=== PATIENT | female | born 1990 | race Caucasian/White ===

== ENCOUNTER 2016-10-26 12:59 | Emergency (ER) | payer OTHER ==
[2016-10-26 13:07] VITALS: O2SAT 96
--- NOTE | 2016-10-26 13:28 | UCPHY ---
H & P Time Seen by Provider: 10/26/16 13:09 Patient Type: Established HPI/ROS: CHIEF COMPLAINT: cough, right-sided chest pain HISTORY OF PRESENT ILLNESS: 25-year-old female presents to Urgent Care with concerns about possible the pulled muscle on the right side of her chest. The patient states that she has a history of chronic cough since March 2016. 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 She has been using saline nasal washes which has helped with the cough a bit. She developed cold symptoms over the last few weeks and her cough became worse. She states that she remembers a specific instance where she was coughing and then developed the this same right-sided chest pain just underneath her right breast. The pain is worse when she takes a big deep breath. She is also able to push on this area which causes pain. She also states with certain movements causes pain. She feels that the pain became acutely worse last evening. She feels that it has become more painful degrees. She does not necessarily feel short of breath however. No other reported injuries. She has had this problem in the past due to her chronic cough and did try taking her muscle relaxer, however this was not helpful. REVIEW OF SYSTEMS: Constitutional: No fever, no chills. Eyes: No double or blurry vision. ENT: No sore throat. Respiratory: Cough as above. Right-sided chest pain as above. No shortness of breath. Cardiac: No chest pain. Gastrointestinal: No abdominal pain, vomiting or diarrhea. Genitourinary: No dysuria. Musculoskeletal: No neck or back pain. Skin: No rashes. Neurological: No headache. Past Medical/Surgical History: History of chronic cough since March 2016 Social History: Single Smoking Status: Never smoked Physical Exam: General Appearance: Alert, no distress. Respirations 16, 96% on room air. Afebrile and nontoxic appearing. Eyes: Pupils equal and round. Extraocular motions are all intact. ENT: Mouth: Mucous membranes moist. Respiratory: No wheezing, rhonchi, or rales, lungs are clear to auscultation. The patient has reproducible pain with palpation to the right anterior chest wall just below the right breast in the mid clavicular line. No palpable crepitus or other bony abnormalities. The pain is also worse with movement of her right shoulder specially when she abducts her right arm. Cardiovascular: Regular rate and rhythm. Gastrointestinal: Abdomen is soft and nontender, no masses, no rebound or guarding, bowel sounds normal. Specifically no tenderness with palpation in the right upper quadrant. No CVA tenderness bilaterally. Neurological: Alert and oriented x 3, cranial nerves II through XII grossly intact Skin: Warm and dry, no rashes. Musculoskeletal: Nontender to palpate along the cervical, thoracic or lumbar spine. Neck is supple. Extremities: Full range of motion and no peripheral edema. Psychiatric: Patient is oriented X 3, there is no agitation. Constitutional: Initial Vital Signs Temperature (C) 36.9 C 10/26/16 13:02 Heart Rate 84 10/26/16 13:02 Respiratory Rate 16 10/26/16 13:02 Blood Pressure 119/78 10/26/16 13:02 O2 Sat (%) 96 10/26/16 13:02 O2 Delivery Mode Room Air Allergies/Adverse Reactions: No Known Allergies Allergy (Unverified 10/26/16 13:07) Home Medications: Medication Instructions Recorded Hydrocodone/APAP 5/325 [[place] 1 each PO Q4-6PRN PRN #15 tab 10/26/16 5/325 (*)] Nuva Ring 10/26/16 Medical Decision Making ED Course/Re-evaluation: 25-year-old female presents with right-sided chest pain and chronic cough. The patient feels that her cough became much worse when she developed URI symptoms a few weeks ago. She developed more acute pain with breathing last night. I doubt this patient has a pulmonary embolism. I am unable to recreate pain with palpation. I am also able to reproduce pain with movement of her right upper extremity. Chest x-ray is pending to rule out possible pneumothorax. Differential Diagnosis: Including but not limited to muscular chest wall pain, rib fracture, pleurisy, costochondritis, pulmonary embolism Departure - Departure Disposition: Home, Routine, Self-Care Clinical Impression: Chest wall pain, History of chronic cough Condition: Good Instructions: Chest Wall Pain (ED), Chronic Cough (ED) Additional Instructions: Ibuprofen 600 mg every 8 hours as needed for pain. Hydrocodone for severe pain as directed. Return if you developed shortness of breath, increasing pain, or if you feel worse in any way. Activity as tolerated although avoid any heavy lifting or any activity that might cause pain in your right chest wall area. Referrals: Ana Jaimes MD [Primary Care Provider] - 1 day, if not improved Prescriptions: Hydrocodone/APAP 5/325 [[place] 5/325 (*)] 1 each PO Q4-6PRN PRN #15 tab PRN Reason: Pain, Severe - PQRS PQRS Measurement: Not applicable
--- NOTE | 2016-10-26 13:36 | DX ---
Chest, PA and Lateral Views, at 1:22 p.m. Clinical History: 25-year-old female with a cough and right anterior chest pain. Comparison Study: Chest, dated September 10, 2016. Findings: The cardiac and mediastinal silhouette is normal in size. There is no focal infiltrate, ate lectasis, pleural effusion, peripheral interstitial edema, or pneumothorax. The trachea is midline. T he osseous structures are age-appropriate. Impression: No acute abnormality.
[2016-10-26 13:56] VITALS: BP 115/64; PULSE 82; RESP 18; TEMP 98.6
== END 2016-10-26 13:57 | disposition home or self-care (01) ==
LOC: CED 12:59
DX: R05 Cough (principal); R07.9 Chest pain, unspecified
CPT/HCPCS: 71020-PO; 99214-PO; G0463-PO